=== PATIENT | female | born 1995 | race Caucasian/White ===

== ENCOUNTER 2017-01-25 19:39 | Emergency (ER) | payer SELFPAY ==
[~2017-01-25] VITALS: Ht 167.6 cm; Wt 69.9 kg
[~2017-01-25 19:39] MED LIST: BACTROBAN15 GM TOP; BENADRYL PO; NO MEDICATIONS; ZOFRANODT PO
== END 2017-01-25 20:39 | disposition home or self-care (01) ==
LOC: SED 19:39
DX: R68.84 Jaw pain (principal)
CPT/HCPCS: 96372; 99283; J1885